=== PATIENT | female | born 1950 | race Caucasian/White ===

== ENCOUNTER → 2016-11-21 | Outpatient (CLI) | payer BC ==
[2016-11-21 16:26] LABS: INR 1.91; PROTIME 22.1 Sec (12.2-14.2); PT RATIO 1.7
== END | disposition home or self-care (01) ==
LOC: LAB 13:28
PROVIDERS: ATTEND Internal Medicine Hematology & Oncology
DX: I82.91 Chronic embolism and thrombosis of unspecified vein (principal)
CPT/HCPCS: 85610

== ENCOUNTER → 2017-01-02 | Outpatient (CLI) | payer BC ==
[2017-01-02 16:23] LABS: ADD SCAN DIFF NO
[2017-01-02 16:30] LABS: BASOPHILS % 0.5 % (0.0-2.0); EOSINOPHILS # 0.1 10^3/ul (0.0-0.5); EOSINOPHILS % 1.7 % (0.0-7.0); HEMATOCRIT 40.9 % (37.0-47.0); HEMOGLOBIN 13.5 g/dl (12.0-16.0); LYMPHOCYTES # 2.1 10^3/ul (0.8-2.9); LYMPHOCYTES % 36.6 % (15.0-51.0); MEAN CORPUSCULAR HEMOGLOBIN 29.9 pg (29.0-33.0); MEAN CORPUSCULAR VOLUME 90.5 fl (82.0-101.0); MONOCYTE # 0.7 10^3/ul (0.3-0.9); MONOCYTES % 12.9 % (0.0-11.0); NEUTROPHIL # 2.7 10^3/ul (1.6-7.5); PLATELET COUNT 209 10^3/UL (140-415); RED BLOOD COUNT 4.52 10^6/ul (4.20-5.40); WHITE BLOOD COUNT 5.7 10^3/ul (4.8-10.8)
[2017-01-02 16:40] LABS: INR 2.78; PARTIAL THROMBOPLASTIN TIME 43.1 Sec (25.0-35.0); PROTIME 29.7 Sec (12.2-14.2); PT RATIO 2.3
[2017-01-02 16:52] LABS: POTASSIUM 3.9 mmol/L (3.5-5.1)
[2017-01-02 16:55] LABS: ALBUMIN/GLOBULIN RATIO 1.21; BILIRUBIN,INDIRECT 0.1 mg/dl (0-1.1); BILIRUBIN,TOTAL 0.1 mg/dl (0.2-1.3); CALCIUM 9.4 mg/dl (8.4-10.2); CREATININE 0.92 mg/dl (0.44-1.00); TOTAL PROTEIN 7.3 g/dl (6.1-8.1)
== END | disposition home or self-care (01) ==
LOC: LAB 11:05
PROVIDERS: ATTEND Internal Medicine
DX: E78.5 Hyperlipidemia, unspecified (principal); I10 Essential (primary) hypertension; I65.29 Occlusion and stenosis of unspecified carotid artery
CPT/HCPCS: 80053; 80061; 85025; 85610; 85730

== ENCOUNTER → 2017-02-19 | Outpatient (CLI) | payer BC ==
[2017-02-19 12:23] LABS: INR 0.91; PROTIME 12.2 Sec (12.2-14.2)
== END | disposition home or self-care (01) ==
LOC: LAB 10:32
PROVIDERS: ATTEND Internal Medicine Hematology & Oncology
DX: I82.91 Chronic embolism and thrombosis of unspecified vein (principal)
CPT/HCPCS: 85610

== ENCOUNTER → 2017-03-12 | Outpatient (CLI) | payer BC ==
[2017-03-12 11:58] LABS: ADD SCAN DIFF NO
[2017-03-12 12:07] LABS: BASOPHILS % 0.5 % (0.0-2.0); EOSINOPHILS # 0.1 10^3/ul (0.0-0.5); EOSINOPHILS % 1.3 % (0.0-7.0); HEMATOCRIT 42.7 % (37.0-47.0); HEMOGLOBIN 14.4 g/dl (12.0-16.0); LYMPHOCYTES # 1.6 10^3/ul (0.8-2.9); LYMPHOCYTES % 29.1 % (15.0-51.0); MEAN CORPUSCULAR HEMOGLOBIN 30.6 pg (29.0-33.0); MEAN CORPUSCULAR HGB CONC 33.7 g/dl (32.0-37.0); MEAN CORPUSCULAR VOLUME 90.7 fl (82.0-101.0); MEAN PLATELET VOLUME 11.8 fl (7.4-10.4); MONOCYTE # 0.5 10^3/ul (0.3-0.9); MONOCYTES % 9.7 % (0.0-11.0); NEUTROPHIL # 3.3 10^3/ul (1.6-7.5); NEUTROPHILS % 59.2 % (39.0-77.0); PLATELET COUNT 185 10^3/UL (140-415); RED BLOOD COUNT 4.71 10^6/ul (4.20-5.40); WHITE BLOOD COUNT 5.6 10^3/ul (4.8-10.8)
[2017-03-12 12:28] LABS: ALBUMIN 4.1 g/dl (3.3-4.9)
[2017-03-12 12:29] LABS: POTASSIUM 3.9 mmol/L (3.5-5.1)
[2017-03-12 12:30] LABS: INR 2.36; PARTIAL THROMBOPLASTIN TIME 39.5 Sec (25.0-35.0); PROTIME 26.1 Sec (12.2-14.2)
[2017-03-12 12:31] LABS: ALBUMIN/GLOBULIN RATIO 1.36; BILIRUBIN,INDIRECT 0.2 mg/dl (0-1.1); BILIRUBIN,TOTAL 0.2 mg/dl (0.2-1.3); CREATININE 0.79 mg/dl (0.44-1.00); TOTAL PROTEIN 7.1 g/dl (6.1-8.1)
[2017-03-12 12:32] LABS: CALCIUM 9.7 mg/dl (8.4-10.2); CHOL/HDL RATIO 1.7 RATIO
== END | disposition home or self-care (01) ==
LOC: LAB 09:54
PROVIDERS: ATTEND Internal Medicine Hematology & Oncology
DX: I70.90 Unspecified atherosclerosis (principal); G90.2 Horner's syndrome; Z90.81 Acquired absence of spleen; E72.12 Methylenetetrahydrofolate reductase deficiency
CPT/HCPCS: 80053; 80061; 82652; 83036; 85025; 85610; 85730

== ENCOUNTER → 2017-05-15 | Outpatient (CLI) | payer BC ==
[2017-05-15 13:47] LABS: INR 1.75; PROTIME 20.6 Sec (12.2-14.2); PT RATIO 1.6
== END | disposition home or self-care (01) ==
LOC: LAB 12:11
PROVIDERS: ATTEND Internal Medicine Hematology & Oncology
DX: I82.91 Chronic embolism and thrombosis of unspecified vein (principal)
CPT/HCPCS: 85610

== ENCOUNTER → 2017-07-09 | Outpatient (CLI) | payer BC ==
[2017-07-09 12:26] LABS: BASOPHILS % 0.7 % (0.0-2.0); EOSINOPHILS # 0.1 10^3/ul (0.0-0.5); EOSINOPHILS % 1.7 % (0.0-7.0); HEMATOCRIT 43.3 % (37.0-47.0); HEMOGLOBIN 14.5 g/dl (12.0-16.0); LYMPHOCYTES # 1.6 10^3/ul (0.8-2.9); MEAN CORPUSCULAR HEMOGLOBIN 30.7 pg (29.0-33.0); MEAN CORPUSCULAR HGB CONC 33.5 g/dl (32.0-37.0); MEAN CORPUSCULAR VOLUME 91.5 fl (82.0-101.0); MEAN PLATELET VOLUME 12.3 fl (7.4-10.4); MONOCYTE # 0.6 10^3/ul (0.3-0.9); MONOCYTES % 9.6 % (0.0-11.0); NEUTROPHILS % 60.7 % (39.0-77.0); PLATELET COUNT 192 10^3/UL (140-415); RED BLOOD COUNT 4.73 10^6/ul (4.20-5.40); RED CELL DISTRIBUTION WIDTH 14.9 % (11.5-14.5); WHITE BLOOD COUNT 5.8 10^3/ul (4.8-10.8)
[2017-07-09 12:49] LABS: INR 2.38; PROTIME 26.3 Sec (12.2-14.2); PT RATIO 2.1
[2017-07-09 12:52] LABS: ALBUMIN 4.4 g/dl (3.3-4.9); ALBUMIN/GLOBULIN RATIO 1.29; BILIRUBIN,INDIRECT 0.2 mg/dl (0-1.1); BILIRUBIN,TOTAL 0.2 mg/dl (0.2-1.3); CALCIUM 9.9 mg/dl (8.4-10.2); CHOL/HDL RATIO 1.8 RATIO; CREATININE 0.81 mg/dl (0.44-1.00); POTASSIUM 4.2 mmol/L (3.5-5.1); TOTAL PROTEIN 7.8 g/dl (6.1-8.1)
== END | disposition home or self-care (01) ==
LOC: LAB 10:57
PROVIDERS: ATTEND Internal Medicine
DX: E78.5 Hyperlipidemia, unspecified (principal)
CPT/HCPCS: 80053; 80061; 85025; 85610

== ENCOUNTER 2017-07-31 16:45 | Emergency (ER) | END 2017-07-31 20:27 | disposition home or self-care (01) | DX: S01.81XA Laceration without foreign body of other part of head, initial encounter (principal); S61.511A Laceration without foreign body of right wrist, initial encounter; W01.0XXA Fall on same level from slipping, tripping and stumbling without subsequent striking against object, initial encounter; Y92.481 Parking lot as the place of occurrence of the external cause; Z79.01 Long term (current) use of anticoagulants ==

== ENCOUNTER 2017-08-02 09:54 | Emergency (ER) | payer BC ==
[~2017-08-02] VITALS: Wt 64.5 kg
[2017-08-02] MEDS ORDERED: HYDR-906 PO (10:41)
--- NOTE | 2017-08-02 11:32 | ERD ---
ER Documentation Chief Complaint Date/Time DATE: 08/02/17 TIME: 11:30 Chief Complaint PT HERE FOR RECHECK ON CHIN LAC REPAIR HPI This is a 67-year-old female presents to the ER wound re check. Per patient she is worried about changing the dressing, secondary to severe bleeding. Patient does take Coumadin and initial laceration repair was difficult secondary to bleeding. Patient is still experiencing pain around the area. She denies any fevers or chills. ROS 12 point review of systems was done, all negative except per HPI. Medications Home Meds Active Scripts Hydrocodone/Acetaminophen ([place] 5-325 Tablet) 1 Each Tablet, 1 TAB PO Q6H Y for PAIN, #15 TAB Prov:CRISTIAN WISEMAN 08/02/17 PMhx/Soc Medical and Surgical Hx: pt denies Surgical Hx History of Surgery: No Anesthesia Reaction: No Hx Neurological Disorder: No Hx Respiratory Disorders: No Hx Cardiac Disorders: No Hx Psychiatric Problems: No Hx Alcohol Use: No Hx Substance Use: No Hx Tobacco Use: No Smoking Status: Never smoker Physical Exam Vitals Vital Signs Date Time Temp Pulse Resp B/P Pulse Ox O2 Delivery O2 Flow Rate FiO2 08/02/17 09:55 98.5 79 18 181/87 100 Physical Exam Const: [] Head: Atraumatic Eyes: Normal Conjunctiva Resp: Clear to auscultation bilaterally Cardio: Regular rate and rhythm, no murmurs Skin: There is a healing laceration to the chin, no wound dehiscence, no discharge no erythema, no swelling. Healing laceration to the right wrist, no surrounding erythema no warmth to the touch, there is a small hematoma. Neur: Awake and alert Psych: Normal Mood and Affect Procedures/MDM Wound shows no evidence of infection, foreign body, neurologic injury, vascular injury, open joint or tendon laceration. Patient appropriate for outpatient follow up. Departure Diagnosis: Primary Impression: Encounter for wound re-check Condition: Stable Patient Instructions: Wound Check, Lac F/U (No Infection) Additional Instructions: Call your primary care doctor TOMORROW for an appointment during the next 1-2 days.See the doctor sooner or return here if your condition worsens before your appointment time. CRISTIAN WISEMAN Aug 02, 2017 11:32
== END 2017-08-02 11:05 | disposition home or self-care (01) ==
LOC: FTE 09:54
DX: Z48.01 Encounter for change or removal of surgical wound dressing (principal)
CPT/HCPCS: 99283

== ENCOUNTER → 2017-08-26 | Outpatient (CLI) | payer BC ==
[~2017-08-26] MED LIST: HYDR-906 PO
== END | disposition home or self-care (01) ==
LOC: LAB 11:42
PROVIDERS: ATTEND Internal Medicine Hematology & Oncology
DX: I82.91 Chronic embolism and thrombosis of unspecified vein (principal)
CPT/HCPCS: 85610

== ENCOUNTER → 2017-09-02 | Outpatient (CLI) | payer BC | END | disposition home or self-care (01) | LOC: LAB 13:31 | PROVIDERS: ATTEND Internal Medicine Hematology & Oncology | DX: G90.2 Horner's syndrome (principal); R21 Rash and other nonspecific skin eruption; I70.90 Unspecified atherosclerosis; E72.10 Disorders of sulfur-bearing amino-acid metabolism, unspecified | CPT/HCPCS: 81001; 87086 ==

== ENCOUNTER → 2017-09-03 | Outpatient (CLI) | payer BC | END | disposition home or self-care (01) | LOC: LAB 15:44 | PROVIDERS: ATTEND Internal Medicine Hematology & Oncology | DX: I82.91 Chronic embolism and thrombosis of unspecified vein (principal) | CPT/HCPCS: 85610; 85730 ==

== ENCOUNTER → 2017-09-05 | Outpatient (CLI) | payer BC | END | disposition home or self-care (01) | LOC: LAB 13:15 | PROVIDERS: ATTEND Internal Medicine Hematology & Oncology | DX: N39.0 Urinary tract infection, site not specified (principal) | CPT/HCPCS: 81001; 87086 ==

== ENCOUNTER → 2017-09-11 | Outpatient (CLI) | payer BC ==
[~2017-09-11] MED LIST changes: +IODIXANOL LOCM 100 ML BTL ONE; +SOD CHLORIDE 0.9% 100 ML ONE
--- NOTE | 2017-09-11 19:59 | RADRPT ---
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 No oral contrast had previously been given. Sagittal and coronal re-formations were subsequently reconstructed. One or more of the following dose reduction techniques were used: - Automated exposure control. - Adjustment of the mA and/or kV according to patient size. - Use of iterative reconstruction technique. Radiation dose: CTDIvol = 23.77 mGy; DLP = 1090.01 mGy-cm. COMPARISON: No prior studies are available for comparison. FINDINGS: Lung bases: The visualized lung bases appear unremarkable. Liver: The liver is normal in size. A 1.2 cm cyst is seen in the anterior right lobe and a few sub c entimeter cysts are seen throughout the remaining liver. Gallbladder: The gallbladder wall is mildly thickened but no radiopaque stone is identified. Bile ducts: The intra and extrahepatic bile ducts are normal in caliber. Pancreas: The pancreatic duct is borderline prominent at 2 mm but no pancreatic mass or inflammation is evident. Spleen: The spleen is small with no focal lesion. There is a small accessory spleen seen laterally. Adrenals: Normal with no mass identified. Kidneys, ureters and bladder: The left kidney is absent. The right kidney appears normal with no piter dence of intra renal calcification, a mass, hydronephrosis, or an intrinsic filling defect within th e collecting system. The right ureter appears normal. The bladder wall appears mildly diffusely thic kened. Reproductive organs: The uterus is absent. No adnexal mass is evident. Stomach, bowel, and mesentery: The stomach and bowel appear unremarkable without evidence of obstruc tion or inflammation. Appendix: A normal vermiform appendix is evident. Peritoneum: No free intraperitoneal fluid or air is identified. Aorta: The aorta is tortuous and atherosclerotic appearing. A saccular 2.9 x 2.0 x 1.4 cm centimeter aneurysm is seen at the right common iliac artery which appears to be thrombosed. IVC: Unremarkable. Lymph nodes: No pathologically enlarged nodes are identified. Osseous structures: Degenerative disc changes are seen through the lumbar spine with moderate degene rative osseous changes. There is a broad-based disc bulge at L5-S1. IMPRESSION: 1. 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 2. The right kidney appears normal without evidence of nephrolithiasis, a mass, urinary outflow obs truction or an intrinsic filling defect. The right ureter appears unremarkable. The bladder wall is moderately diffusely thickened. Cystitis cannot be excluded. 3. There is no evidence of bowel obstruction or inflammation with a normal vermiform appendix evide nt. 4. Normal-sized liver containing several cysts the largest being 1.2 cm in diameter. 5. The gallbladder wall appears mildly thickened but no radiopaque stone is identified. No bile delmer t dilatation is evident. The pancreatic duct is borderline prominent and 2 mm with no pancreatic mas s or inflammation identified. 6. Atherosclerotic vascular calcification with a saccular thrombosed 2.9 x 2.0 x 1.4 cm an aneurysm involving the right common iliac artery. 7. Degenerative disc and endplate changes are seen through the lumbar spine. Physician Mikey Date Time Electronically viewed and signed by Physician Mikey on 09/11/2017 19:59 /
== END | disposition home or self-care (01) ==
LOC: C/S 13:40
PROVIDERS: ATTEND Urology
DX: R31.0 Gross hematuria (principal)
CPT/HCPCS: 74178; Q9967

== ENCOUNTER → 2017-11-11 | Outpatient (CLI) | END | disposition home or self-care (01) ==

== ENCOUNTER → 2017-11-21 | Outpatient (CLI) | END | disposition home or self-care (01) ==

== ENCOUNTER → 2017-12-10 | Outpatient (CLI) | END | disposition home or self-care (01) ==

== ENCOUNTER → 2017-12-31 | Outpatient (CLI) | END | disposition home or self-care (01) ==

== ENCOUNTER → 2018-02-19 | Outpatient (CLI) | END | disposition home or self-care (01) ==

== ENCOUNTER → 2018-04-08 | Outpatient (CLI) | END | disposition home or self-care (01) ==

== ENCOUNTER → 2018-06-05 | Outpatient (CLI) | END | disposition home or self-care (01) ==

== ENCOUNTER → 2018-06-10 | Outpatient (CLI) | END | disposition home or self-care (01) ==

== ENCOUNTER → 2018-08-13 | Outpatient (CLI) | END | disposition home or self-care (01) ==

== ENCOUNTER → 2018-08-21 | Outpatient (CLI) | END | disposition home or self-care (01) ==

== ENCOUNTER → 2018-09-02 | Outpatient (CLI) | END | disposition home or self-care (01) ==

== ENCOUNTER → 2018-10-22 | Outpatient (CLI) | payer BC ==
[~2018-10-22] MED LIST changes: +HYDR-4011 PO; -HYDR-906 PO; -IODIXANOL LOCM 100 ML BTL ONE; -SOD CHLORIDE 0.9% 100 ML ONE
== END | disposition home or self-care (01) ==
LOC: LAB 08:00
PROVIDERS: ATTEND Surgery Vascular Surgery
DX: I82.91 Chronic embolism and thrombosis of unspecified vein (principal)
CPT/HCPCS: 85610

== ENCOUNTER → 2018-11-25 | Outpatient (CLI) | payer BC | END | disposition home or self-care (01) | LOC: LAB 11:35 | PROVIDERS: ATTEND Internal Medicine | DX: E78.5 Hyperlipidemia, unspecified (principal) | CPT/HCPCS: 80053; 80061; 85025; 85610 ==

== ENCOUNTER → 2019-01-08 | Outpatient (CLI) | payer BC | END | disposition home or self-care (01) | LOC: LAB 09:13 | PROVIDERS: ATTEND Internal Medicine Hematology & Oncology | DX: I82.91 Chronic embolism and thrombosis of unspecified vein (principal) | CPT/HCPCS: 85610; 85730 ==

== ENCOUNTER → 2019-03-05 | Outpatient (CLI) | payer BC | END | disposition home or self-care (01) | LOC: LAB 09:48 | PROVIDERS: ATTEND Internal Medicine Hematology & Oncology | DX: I82.91 Chronic embolism and thrombosis of unspecified vein (principal) | CPT/HCPCS: 85610 ==

== ENCOUNTER → 2019-04-23 | Outpatient (CLI) | payer BC | END | disposition home or self-care (01) | LOC: LAB 10:25 | PROVIDERS: ATTEND Internal Medicine Hematology & Oncology | DX: E78.5 Hyperlipidemia, unspecified (principal); Z79.01 Long term (current) use of anticoagulants | CPT/HCPCS: 84436; 84443; 85610 ==

== ENCOUNTER → 2019-06-17 | Outpatient (CLI) | payer BC | END | disposition home or self-care (01) | LOC: LAB 10:26 | PROVIDERS: ATTEND Dermatology | DX: L60.9 Nail disorder, unspecified (principal) | CPT/HCPCS: 86480; 86703; 86704; 86709; 86803; 87340 ==

== ENCOUNTER → 2019-08-27 | Outpatient (CLI) | payer BC | END | disposition home or self-care (01) | LOC: LAB 10:40 | PROVIDERS: ATTEND Internal Medicine Hematology & Oncology | DX: I82.91 Chronic embolism and thrombosis of unspecified vein (principal) | CPT/HCPCS: 85610 ==